=== PATIENT | male | born 2000 | race African-American/Black ===

== ENCOUNTER 2021-09-30 00:31 | Emergency (ER) | payer BC, SELFPAY ==
[2021-09-30 00:41] VITALS: BP 171/93; PULSE 65; RESP 16; TEMP 36.6; O2SAT 99
--- NOTE | 2021-09-30 00:44 | ED_ITS ---
HPI - General Adult General Chief complaint: Urogenital-Male Stated complaint: STD testing Time Seen by Provider: 09/30/21 00:38 History of Present Illness HPI narrative: Patient is a 21-year-old gentleman who presents the emergency department with chief complaint of tingling in the tip of his penis. Patient states for the last several days he has noticed that he has a tingling sensation right at the urethral opening. Patient states that he is had no discharge denies rash reports that he has been sexually active and is concerned that he may have an STI. Related Data Allergies Allergy/AdvReac Type Severity Reaction Status Date / Time No Known Allergies Allergy Verified 09/30/21 00:47 Review of Systems Review of Systems: A 10 system review of systems was completed on the patient and is negative except for what is stated in the HPI. Nursing and ancillary documentation was reviewed. Exam Narrative: GENERAL: Well-appearing, well-nourished, and in no acute distress. HEAD: Normocephalic, atraumatic. EYES: PERRLA and EOMI. ENT: Nares clear, no rhinorrhea or epistaxis. Mucous membranes moist. NECK: Supple. CHEST: Clear to auscultation. No respiratory distress. HEART: Regular rate and rhythm. No murmur heard. Normal peripheral pulses. ABDOMEN: Soft, nontender, nondistended, normal active bowel sounds. EXTREMITIES: Normal range of motion. No edema. : No rash present or discharge SKIN: Warm, dry, no rash. NEURO: No focal deficits. Alert and oriented x3. PSYCH: Normal mood and affect. Course Vital Signs Vital signs: Vital Signs Temperature 36.6 C 09/30/21 00:41 Pulse Rate 65 09/30/21 00:41 Respiratory Rate 16 09/30/21 00:41 Blood Pressure 171/93 H 09/30/21 00:41 Pulse Oximetry 99 09/30/21 00:41 Oxygen Delivery Room Air 09/30/21 00:41 Temperature 36.6 C 09/30/21 00:41 Pulse Rate 65 09/30/21 00:41 Respiratory Rate 16 09/30/21 00:41 Blood Pressure 171/93 H 09/30/21 00:41 Pulse Oximetry 99 09/30/21 00:41 Oxygen Delivery Room Air 09/30/21 00:41 Medical Decision Making Vital Signs Vital Signs: Vital Signs Temperature 36.6 C 09/30/21 00:41 Pulse Rate 65 09/30/21 00:41 Respiratory Rate 16 09/30/21 00:41 Blood Pressure 171/93 H 09/30/21 00:41 Pulse Oximetry 99 09/30/21 00:41 Oxygen Delivery Room Air 09/30/21 00:41 Temperature 36.6 C 09/30/21 00:41 Pulse Rate 65 09/30/21 00:41 Respiratory Rate 16 09/30/21 00:41 Blood Pressure 171/93 H 09/30/21 00:41 Pulse Oximetry 99 09/30/21 00:41 Oxygen Delivery Room Air 09/30/21 00:41 Discharge Plan Discharge Clinical Impression: Urethritis Patient Disposition: Home, Self-Care Condition: Stable Instructions: Antibiotic Form, Nonspecific Urethritis in Men (ED) Prescriptions: New doxycycline hyclate 100 mg capsule 100 mg PO DAILY Qty: 14 0RF Follow-up/Referrals: PHYSICIAN,PEDIATRIC CLINICAL DIETICIAN [Non-Staff] - Robbie Jerry MD [Physician] - Time of Disposition: 00:50
[2021-09-30] MEDS: DOXYCYCLINE HYCLATE 100 MG TABLET PO (01:10)
[2021-09-30] MEDS: LIDOCAINE HCL 1% LOCAL INJ 20 ML VIAL (01:11)
[2021-09-30] MEDS: cefTRIAXone 1 GM VIAL 0.5 GM IM (01:13)
== END 2021-09-30 01:35 | disposition home or self-care (01) ==
LOC: ANHED 00:58
PROVIDERS: Emergency Provider Emergency Medicine
DX: N34.2 Other urethritis (principal)
CPT/HCPCS: 87491; 87591; 96372; 99283; A9270; J0696